=== PATIENT | male | born 1965 | race Caucasian/White ===

== ENCOUNTER 2021-01-13 14:57 | Inpatient (IN) ==
[2021-01-13] MEDS ORDERED: Ondansetron 4 mg VIAL 2 MG/ML 2 ml VIAL IV ONE (16:13)
[2021-01-13] MEDS ORDERED: Morphine 4 MG/ML VIAL (1 ml) IV ONE ×2 (16:13→18:04)
[2021-01-13] MEDS ORDERED: NS 0.9% 1000 ml BAG 1,000 ML IV ONE ×2 (16:13→18:05)
[2021-01-13 16:31] LABS: ABS Lymphocytes 0.4 10^3/ul (1.0-4.8); ABS Monocytes 0.9 10^3/ul (0-0.8); ABS Neutrophils 5.9 10^3/ul (1.5-7.7); Eosinophil % 0.5 %; Hematocrit 51 % (42-52); Hemoglobin 17.5 g/dL (14.0-18.0); Lymphocyte % 5.2 %; Mean Corpuscular HGB Conc 35 g/dL (31-36); Mean Platelet Volume 8.5 fL (7.4-10.4); Nucleated Red Blood Cells % 0.1; Platelet Count 162 10^3/uL (150-450); Red Blood Count 4.78 10^6 /uL (4.18-5.48); Red Cell Distribution Width 15 % (10-15); White Blood Count 7.2 10^3/uL (3.5-10.8)
[2021-01-13 16:43] LABS: INR 0.97 (0.82-1.09)
[2021-01-13 16:49] LABS: Troponin I 0.01 ng/mL (<0.03)
[2021-01-13 16:56] LABS: Mean Corpuscular Hemoglobin 37 pg (27-31); Mean Corpuscular Volume 106 fL (80-94)
[2021-01-13 17:06] LABS: ALT 48 U/L (7-52); AST 51 U/L (13-39); Albumin 3.7 g/dL (3.2-5.2); Alkaline Phosphatase 95 U/L (34-104); Anion Gap 11 mmol/L (2-11); Blood Urea Nitrogen 8 mg/dL (6-24); CO2 Carbon Dioxide 25 mmol/L (22-32); Calcium 9.1 mg/dL (8.6-10.3); Chloride 100 mmol/L (101-111); EGFR African American 120.6 (>60); EGFR Non-African American 99.7 (>60); Globulin 3.8 g/dL (2-4); Glucose 94 mg/dL (70-100); Potassium 4.1 mmol/L (3.5-5.0); Sodium 136 mmol/L (135-145); Total Protein 7.5 g/dL (6.4-8.9)
[2021-01-13 18:01] LABS: Alcohol, S < 10 mg/dL (<10)
[2021-01-13] MEDS ORDERED: Ondansetron 4 mg VIAL 2 MG/ML 2 ml VIAL IV PRN (18:38)
[2021-01-13] MEDS ORDERED: LORazepam 2 mg VIAL 1 ml IV PUSH SCH (19:00)
[2021-01-13] MEDS: oxyCODONE/Acetamin 5/325 mg TAB PO PRN (21:21)
[2021-01-13] MEDS: fentaNYL 100 mcg/2 ml 50 MCG/ML VIAL IV SLOW PU PRN (21:21)
[2021-01-14] MEDS ORDERED: NS 0.9% 1000 ml BAG 1,000 ML IV SCH (00:01)
[2021-01-14] MEDS ORDERED: Lactated Ringers 1000 ml BAG 1,000 ML IV ONE (00:01)
[2021-01-14] MEDS: oxyCODONE/Acetamin 5/325 mg TAB PO PRN ×3 (03:37→20:08)
[2021-01-14 06:14] LABS: INR 0.98 (0.82-1.09)
[2021-01-14 09:02] LABS: ABS Eosinophils 0.1 10^3/ul (0-0.6); ABS Lymphocytes 0.7 10^3/ul (1.0-4.8); ABS Monocytes 0.8 10^3/ul (0-0.8); ABS Neutrophils 4.1 10^3/ul (1.5-7.7); Eosinophil % 2.3 %; Hematocrit 48 % (42-52); Hemoglobin 16.1 g/dL (14.0-18.0); Lymphocyte % 11.8 %; Mean Corpuscular HGB Conc 34 g/dL (31-36); Mean Corpuscular Hemoglobin 36 pg (27-31); Mean Corpuscular Volume 106 fL (80-94); Mean Platelet Volume 9.6 fL (7.4-10.4); Nucleated Red Blood Cells % 0.2; Platelet Count 166 10^3/uL (150-450); Red Cell Distribution Width 15 % (10-15); White Blood Count 5.8 10^3/uL (3.5-10.8)
[2021-01-14 09:08] LABS: Activated Partial Thrombo Time 31.2 seconds (26.0-38.0)
[2021-01-14 09:14] LABS: EGFR African American 129.8 (>60); EGFR Non-African American 107.3 (>60)
[2021-01-14] MEDS: Multivitamins/Minerals TAB PO SCH ×2 (09:43→12:50)
[2021-01-14] MEDS: fentaNYL 100 mcg/2 ml 50 MCG/ML VIAL IV SLOW PU PRN ×4 (09:43→22:30)
[2021-01-14] MEDS: Heparin 5000 UNITS/ML 1 mL VIAL SUBCUT SCH ×2 (14:13→22:33)
[2021-01-14 20:37] LABS: Urine Benzodiazepine Screen None Detected (None Detect); Urine Cannabinoids Screen Presumptive Positive (None Detect); Urine Opiates Screen Presumptive Positive (None Detect)
[2021-01-15] MEDS: oxyCODONE/Acetamin 5/325 mg TAB PO PRN ×3 (02:09→22:34)
[2021-01-15] MEDS: fentaNYL 100 mcg/2 ml 50 MCG/ML VIAL IV SLOW PU PRN (04:52)
[2021-01-15] MEDS: Lactated Ringers 1000 ml BAG 1,000 ML IV SCH ×2 (05:39→22:33)
[2021-01-15] MEDS ORDERED: Buffered Lidocaine 1% SYRIN 1 ml INTRADERM ONE (06:00)
[2021-01-15] MEDS ORDERED: Propofol 10 mg/ml 100 ML BTL 0 ML ONE (07:09)
[2021-01-15] MEDS: Multivitamins/Minerals TAB PO SCH (08:03)
[2021-01-15 08:38] LABS: ABS Eosinophils 0.1 10^3/ul (0-0.6); ABS Lymphocytes 0.9 10^3/ul (1.0-4.8); ABS Monocytes 0.7 10^3/ul (0-0.8); ABS Neutrophils 3.8 10^3/ul (1.5-7.7); Eosinophil % 2.5 %; Hematocrit 48 % (42-52); Hemoglobin 16.4 g/dL (14.0-18.0); Lymphocyte % 15.5 %; Mean Corpuscular HGB Conc 34 g/dL (31-36); Mean Corpuscular Hemoglobin 36 pg (27-31); Mean Corpuscular Volume 106 fL (80-94); Mean Platelet Volume 8.8 fL (7.4-10.4); Platelet Count 158 10^3/uL (150-450); Red Blood Count 4.56 10^6 /uL (4.18-5.48); Red Cell Distribution Width 15 % (10-15); White Blood Count 5.5 10^3/uL (3.5-10.8)
[2021-01-15 08:49] LABS: Calcium 8.7 mg/dL (8.6-10.3); EGFR African American 152.8 (>60); EGFR Non-African American 126.3 (>60); Potassium 3.6 mmol/L (3.5-5.0)
[2021-01-15 08:57] LABS: Activated Partial Thrombo Time 30.5 seconds (26.0-38.0); INR 1.03 (0.82-1.09)
[2021-01-15] MEDS ORDERED: ceFAZolin 2 GM PREMIX 2 GM/50 ML BAG ONE (13:06)
[2021-01-15] MEDS ORDERED: Rocuronium 50 mg VIAL 10 mg/ml 5 ml VIAL (50 mg) ONE ×3 (14:16→16:29)
[2021-01-15] MEDS ORDERED: Lidocaine 2% PF 5 ML VIAL ONE (14:16)
[2021-01-15] MEDS ORDERED: fentaNYL 250 mcg/5 ml 50 MCG/ML 5 ml VIAL (250 MCG) ONE (14:16)
[2021-01-15] MEDS ORDERED: Midazolam 2 mg/2 ml VIAL 1 mg/ml 2 ml VIAL (2 mg) ONE (14:16)
[2021-01-15] MEDS ORDERED: Propofol 10 MG/ML 20 ML BTL ONE (15:32)
[2021-01-15] MEDS ORDERED: HYDROmorphone 1 MG/1 ML SYRINGE ONE (17:31)
[2021-01-15] MEDS ORDERED: Phenylephrine 40 mcg/mL 10mL (400mcg) SYRINGE ONE (18:02)
[2021-01-15] MEDS ORDERED: Dexamethasone IV 4 MG/ML VIAL 1 ml VIAL ONE (18:02)
[2021-01-15] MEDS ORDERED: Ondansetron 4 mg VIAL 2 MG/ML 2 ml VIAL ONE (18:02)
[2021-01-15] MEDS ORDERED: Phenylephrine IV 10 MG/ML 1 ml VIAL ONE (18:02)
[2021-01-15] MEDS ORDERED: fentaNYL 100 mcg/2 ml 50 MCG/ML VIAL IV PRN (18:56)
[2021-01-15] MEDS ORDERED: Naloxone 0.4 mg VIAL 0.4 mg/ml 1 ml VIAL IV PRN (18:56)
[2021-01-15] MEDS ORDERED: fentaNYL 100 mcg/2 ml 50 MCG/ML VIAL ONE (19:01)
[2021-01-15] MEDS ORDERED: Morphine 2 MG/ML SYRINGE IV PRN (21:14)
[2021-01-15] MEDS: ceFAZolin 1 GM X 3 DOSES POST-OP Q8H (AddVan) IVPB SCH (23:37)
[2021-01-16] MEDS: oxyCODONE/Acetamin 5/325 mg TAB PO PRN ×3 (05:16→14:54)
[2021-01-16 06:21] LABS: ABS Lymphocytes 0.6 10^3/ul (1.0-4.8); ABS Monocytes 0.9 10^3/ul (0-0.8); ABS Neutrophils 6.6 10^3/ul (1.5-7.7); Hematocrit 44 % (42-52); Hemoglobin 14.7 g/dL (14.0-18.0); Lymphocyte % 7.5 %; Mean Corpuscular HGB Conc 34 g/dL (31-36); Mean Corpuscular Hemoglobin 36 pg (27-31); Mean Corpuscular Volume 106 fL (80-94); Mean Platelet Volume 9.4 fL (7.4-10.4); Platelet Count 174 10^3/uL (150-450); Red Blood Count 4.11 10^6 /uL (4.18-5.48); Red Cell Distribution Width 14 % (10-15); White Blood Count 8.1 10^3/uL (3.5-10.8)
[2021-01-16 06:33] LABS: Calcium 8.2 mg/dL (8.6-10.3); EGFR African American 140.4 (>60); EGFR Non-African American 116.1 (>60); Potassium 3.9 mmol/L (3.5-5.0)
[2021-01-16] MEDS: ceFAZolin 1 GM X 3 DOSES POST-OP Q8H (AddVan) IVPB SCH ×2 (08:11→15:03)
[2021-01-16] MEDS: Multivitamins/Minerals TAB PO SCH (08:11)
[2021-01-16] MEDS: Lactated Ringers 1000 ml BAG 1,000 ML IV SCH (08:11)
[2021-01-16 11:44] VITALS: BP 102/56
== END 2021-01-16 15:45 | disposition home health service (06) | DRG 301 ==
LOC: ED 14:57 → SSU 20:04
PROVIDERS: ADMIT Student in an Organized Health Care Education/Training Program; ATTEND Internal Medicine